=== PATIENT | male | born 1935 | race Caucasian/White ===

== ENCOUNTER 2019-01-30 05:49 | Inpatient (IN) ==
[2019-01-19 12:55] LABS: Basophils % 0.3 % (0.0-0.8); Eosinophils # 0.2 10*3/uL (0.0-0.87); Eosinophils % 1.3 % (0.00-10.9); Hematocrit 37.6 VOL% (42.0-52.0); Hemoglobin 12.1 GM/DL (14.0-18.0); Immature Granulocytes % 1.3 %; Immature Granulocytes Absolute 0.15 #; Lymphocytes # 0.9 10*3/uL (1.4-4.0); Lymphocytes % 8.1 % (21.2-54.2); Mean Corpuscular HGB Conc 32.2 GM/DL (32-36); Mean Corpuscular Volume 95.7 FL (87-102); Mean Platelet Volume 12.3 FL (9.6-12.0); Monocytes % 4.7 % (1.7-12.7); Neutrophils % 84.3 % (38.7-73.9); Platelet Count 195 T/CUMM (130-400); Red Blood Count 3.93 MC/CUMM (3.8-5.5); White Blood Count 11.4 T/CUMM (4-12)
[2019-01-19 13:04] LABS: INR 1.6; PT Patient Result 16.8 SECS (9.6-12.2)
[2019-01-19 13:14] LABS: Albumin 3.2 G/DL (3.4-5.0); Bilirubin,Total 0.7 MG/DL (0.2-1.0); Calcium 8.1 MG/DL (8.5-10.1); Osmolality,Calculated 283.4 MOS/KG (273-304); Total Protein 6.9 G/DL (6.4-8.3)
[2019-01-30] MEDS ORDERED: ceFAZolin 1,000 MG in SYRINGE 1 EACH IV ONE (06:00)
[2019-01-30 07:09] LABS: PT Patient Result 11.3 SECS (9.6-12.2)
[2019-01-30] MEDS ORDERED: PHENYLEPHRINE DRIP 20 MG/250 ML PREMIX IV ONE (07:15)
[2019-01-30] MEDS ORDERED: ROPIVACAINE 0.5% 30 ML VIAL ONE (07:15)
[2019-01-30] MEDS ORDERED: HEPARIN/NACL 0.9% 2 UNITS/ML 500 ML IV ONE ×2 (07:15→11:16)
[2019-01-30] MEDS ORDERED: LIDOCAINE 2% 5 ML VIAL ONE ×2 (07:15→11:13)
[2019-01-30] MEDS ORDERED: PHENYLEPHRINE 10 MG/1 ML VIAL IV ONE ×2 (07:16→11:16)
[2019-01-30] MEDS ORDERED: NITROGLYCERIN DRIP 50 MG/250 ML BOTTLE IV ONE ×2 (07:16→11:16)
[2019-01-30] MEDS ORDERED: MIDAZOLAM 2 MG/2 ML VIAL ONE (07:16)
[2019-01-30] MEDS ORDERED: EPINEPHrine 1 MG/ML VIAL ONE (07:16)
[2019-01-30] MEDS ORDERED: fentaNYL 100 MCG/2 ML VIAL ONE (07:16)
[2019-01-30] MEDS ORDERED: ceFAZolin 1,000 MG VIAL ONE (07:35)
[2019-01-30] MEDS ORDERED: DEXAMETHASONE 4 MG/1 ML VIAL ONE (07:54)
[2019-01-30] MEDS ORDERED: LIDOCAINE 1% 20 ML VIAL ONE (08:23)
[2019-01-30] MEDS ORDERED: HEPARIN 5,000 UNIT/1 ML VIAL ONE (08:23)
[2019-01-30] MEDS ORDERED: LACTATED RINGERS 1,000 ML IV SCH ×2 (08:30)
[2019-01-30] MEDS ORDERED: SCOPOLAMINE 1.5 MG PATCH TRANSDERM ONE (08:37)
[2019-01-30] MEDS ORDERED: GLUCAGON 1 MG VIAL IM PRN (10:44)
[2019-01-30] MEDS ORDERED: DEXTROSE 50% 25 GM/50 ML VIAL IV PRN (10:44)
[2019-01-30] MEDS ORDERED: oxyCODONE/ACETAMINOPHEN 5-325 MG TABLET PO PRN ×2 (10:44)
[2019-01-30] MEDS ORDERED: HYDROmorphone 2 MG/1 ML VIAL IV PRN ×2 (10:44)
[2019-01-30] MEDS ORDERED: PROMETHAZINE 25 MG/1 ML VIAL IM PRN (10:44)
[2019-01-30] MEDS ORDERED: NALOXONE 0.4 MG/ML VIAL IV PRN (10:44)
[2019-01-30] MEDS ORDERED: ONDANSETRON 4 MG/2 ML VIAL IV PRN (10:44)
[2019-01-30] MEDS ORDERED: NITROPRUSSIDE 100 MG in DEXTROSE 5% 250 ML IV SCH (11:00)
[2019-01-30] MEDS ORDERED: HEPARIN 10,000 UNIT/10 ML VIAL ONE (11:14)
[2019-01-30] MEDS ORDERED: SEVOFLURANE 1 UNIT/15 MINUTE INH ONE (11:14)
[2019-01-30] MEDS ORDERED: ETOMIDATE 40 MG/20 ML VIAL IV ONE (11:14)
[2019-01-30] MEDS ORDERED: ONDANSETRON 4 MG/2 ML VIAL ONE (11:14)
[2019-01-30] MEDS ORDERED: GLYCOPYRROLATE 0.4 MG/2 ML VIAL ONE (11:14)
[2019-01-30] MEDS ORDERED: ePHEDrine 50 MG/ML AMP ONE (11:14)
[2019-01-30] MEDS ORDERED: PROTAMINE SULFATE 50 MG/5 ML VIAL IV ONE (11:15)
[2019-01-30] MEDS ORDERED: SUCCINYLCHOLINE 200 MG/10 ML VIAL ONE (11:15)
[2019-01-30] MEDS ORDERED: ROCURONIUM 100 MG/10 ML VIAL IV ONE (11:15)
[2019-01-30] MEDS ORDERED: SODIUM CHLORIDE 0.9% 250 ML IV ONE (11:16)
[2019-01-30] MEDS: PHENYLEPHRINE DRIP 40 MG/250 ML PREMIX IV SCH (12:20)
[2019-01-30] MEDS: LACTATED RINGERS 1,000 ML IV SCH ×2 (12:25→22:31)
[2019-01-30] MEDS: FUROSEMIDE 40 MG TABLET PO SCH (15:57)
[2019-01-30] MEDS: SPIRONOLACTONE 25 MG TABLET PO SCH (20:30)
[2019-01-30] MEDS ORDERED: ROSUVASTATIN 40 MG PO SCH (21:00)
[2019-01-30] MEDS ORDERED: SACUBITRIL/VALSARTAN 49-51 MG TABLET PO SCH (21:00)
[2019-01-30] MEDS ORDERED: carvediloL 12.5 MG TABLET PO SCH (21:00)
[2019-01-31] MEDS: PHENYLEPHRINE DRIP 40 MG/250 ML PREMIX IV SCH ×3 (05:17→22:01)
[2019-01-31 08:55] LABS: INR 1.1; PT Patient Result 11.4 SECS (9.6-12.2)
[2019-01-31] MEDS: SPIRONOLACTONE 25 MG TABLET PO SCH (09:02)
[2019-01-31] MEDS: CETIRIZINE 10 MG TABLET PO SCH (09:03)
[2019-01-31] MEDS: POTASSIUM CHLORIDE 20 MEQ TABLET PO SCH (09:03)
[2019-01-31] MEDS: FUROSEMIDE 40 MG TABLET PO SCH (09:04)
[2019-01-31] MEDS: TAMSULOSIN 0.4 MG CAPSULE PO SCH (09:04)
[2019-01-31] MEDS: ENOXAPARIN 40 MG/0.4 ML SYRINGE SUBCUT SCH (09:05)
[2019-01-31] MEDS: LACTATED RINGERS 1,000 ML IV SCH (09:24)
[2019-01-31] MEDS ORDERED: INFLUENZA VIRUS VACCINE 0.5 ML SYRINGE IM ONE (11:47)
[2019-01-31 13:26] LABS: Basophils % 0.2 % (0.0-0.8); Eosinophils % 0.3 % (0.00-10.9); Hematocrit 33.7 VOL% (42.0-52.0); Hemoglobin 10.8 GM/DL (14.0-18.0); Immature Granulocytes % 0.6 %; Immature Granulocytes Absolute 0.08 #; Lymphocytes # 1.4 10*3/uL (1.4-4.0); Lymphocytes % 10.7 % (21.2-54.2); Mean Corpuscular Volume 97.1 FL (87-102); Mean Platelet Volume 12.7 FL (9.6-12.0); Monocytes % 10.4 % (1.7-12.7); Neutrophils % 77.8 % (38.7-73.9); Platelet Count 135 T/CUMM (130-400); Red Blood Count 3.47 MC/CUMM (3.8-5.5); Red Cell Distribution Width 15.4 % (9.3-17.3); White Blood Count 12.9 T/CUMM (4-12)
[2019-01-31 13:45] LABS: Calcium 8.6 MG/DL (8.5-10.1); Osmolality,Calculated 285.1 MOS/KG (273-304)
[2019-01-31] MEDS: WARFARIN 4 MG TABLET PO SCH (18:06)
[2019-02-01 08:07] LABS: Basophils % 0.3 % (0.0-0.8); Eosinophils # 0.1 10*3/uL (0.0-0.87); Eosinophils % 0.7 % (0.00-10.9); Hematocrit 34.8 VOL% (42.0-52.0); Hemoglobin 11.1 GM/DL (14.0-18.0); Immature Granulocytes % 0.6 %; Immature Granulocytes Absolute 0.09 #; Lymphocytes # 1.1 10*3/uL (1.4-4.0); Lymphocytes % 7.4 % (21.2-54.2); Mean Corpuscular HGB Conc 31.9 GM/DL (32-36); Mean Corpuscular Volume 97.5 FL (87-102); Monocytes % 9.6 % (1.7-12.7); Neutrophils % 81.4 % (38.7-73.9); Platelet Count 141 T/CUMM (130-400); Red Blood Count 3.57 MC/CUMM (3.8-5.5); Red Cell Distribution Width 15.6 % (9.3-17.3); White Blood Count 14.7 T/CUMM (4-12)
[2019-02-01 08:14] LABS: PT Patient Result 11.1 SECS (9.6-12.2)
[2019-02-01 08:27] LABS: Calcium 8.2 MG/DL (8.5-10.1); Osmolality,Calculated 285.4 MOS/KG (273-304)
[2019-02-01] MEDS: TAMSULOSIN 0.4 MG CAPSULE PO SCH (10:46)
[2019-02-01] MEDS: ENOXAPARIN 40 MG/0.4 ML SYRINGE SUBCUT SCH (10:46)
[2019-02-01] MEDS: POTASSIUM CHLORIDE 20 MEQ TABLET PO SCH (10:46)
[2019-02-01] MEDS: CETIRIZINE 10 MG TABLET PO SCH (10:47)
[2019-02-01] MEDS: PHENYLEPHRINE DRIP 40 MG/250 ML PREMIX IV SCH (12:10)
[2019-02-01] MEDS ORDERED: SODIUM CHLORIDE 0.9% 1,000 ML IV SCH (13:00)
[2019-02-01] MEDS ORDERED: WARFARIN 7.5 MG TABLET PO ONE (18:00)
[2019-02-01] MEDS: WARFARIN 4 MG TABLET PO SCH (18:07)
[2019-02-01] MEDS: ROSUVASTATIN 20 MG TABLET PO SCH (21:17)
[2019-02-02 05:34] LABS: INR 1.1; PT Patient Result 11.7 SECS (9.6-12.2)
[2019-02-02 05:49] LABS: Calcium 8.4 MG/DL (8.5-10.1); Osmolality,Calculated 289.1 MOS/KG (273-304)
[2019-02-02] MEDS ORDERED: WARFARIN 10 MG TABLET PO ONE (07:39)
[2019-02-02] MEDS ORDERED: MAGNESIUM HYDROXIDE SUSP 30 ML UDCUP PO PRN (08:03)
[2019-02-02] MEDS ORDERED: MAGNESIUM HYDROXIDE SUSP 30 ML UDCUP PO ONE (08:03)
[2019-02-02] MEDS: TAMSULOSIN 0.4 MG CAPSULE PO SCH (08:34)
[2019-02-02] MEDS: POTASSIUM CHLORIDE 20 MEQ TABLET PO SCH (08:35)
[2019-02-02] MEDS: CETIRIZINE 10 MG TABLET PO SCH (08:35)
[2019-02-02] MEDS: ENOXAPARIN 40 MG/0.4 ML SYRINGE SUBCUT SCH (08:35)
[2019-02-02] MEDS: SODIUM CHLORIDE 0.45% 1,000 ML IV SCH ×2 (08:48→22:06)
[2019-02-02] MEDS: ROSUVASTATIN 20 MG TABLET PO SCH (20:12)
[2019-02-03 04:56] LABS: INR 1.4; PT Patient Result 14.9 SECS (9.6-12.2)
[2019-02-03 05:11] LABS: Calcium 8.6 MG/DL (8.5-10.1)
[2019-02-03] MEDS ORDERED: ENOXAPARIN 120 MG/0.8 ML SYRINGE SUBCUT ONE (08:53)
[2019-02-03] MEDS: ENOXAPARIN 40 MG/0.4 ML SYRINGE SUBCUT SCH (09:18)
[2019-02-03] MEDS: CETIRIZINE 10 MG TABLET PO SCH (09:23)
[2019-02-03] MEDS: TAMSULOSIN 0.4 MG CAPSULE PO SCH (09:23)
[2019-02-03] MEDS: POTASSIUM CHLORIDE 20 MEQ TABLET PO SCH (09:23)
[2019-02-03 12:26] VITALS: BP 113/59
[2019-02-03] MEDS ORDERED: WARFARIN 5 MG TABLET PO SCH (18:00)
== END 2019-02-03 12:56 | disposition home or self-care (01) | DRG 38 ==
LOC: N.SDSINP 05:49 → N.CC 11:28 → N.TELES 02-01 17:53
PROVIDERS: ADMIT Surgery; ATTEND Surgery

== ENCOUNTER 2022-04-02 21:00 | Inpatient (IN) ==
[2022-04-02] MEDS ORDERED: NALOXONE 0.4 MG/ML VIAL ONE (21:12)
[2022-04-02] MEDS ORDERED: DILTIAZEM 25 MG/5 ML VIAL IV ONE (21:17)
[2022-04-02] MEDS ORDERED: AMIODARONE 150 MG/3 ML VIAL ONE (21:17)
[2022-04-02] MEDS ORDERED: MAGNESIUM SULF RIDER 2 GM/50 ML PREMIX IV ONE (21:19)
[2022-04-02] MEDS ORDERED: AMIODARONE 450 MG/9 ML VIAL IV ONE (21:25)
[2022-04-02] MEDS: AMIODARONE INJ 450 MG in DEXTROSE 5% 241 ML IV SCH (21:30)
[2022-04-02] MEDS: NOREPINEPHRINE DRIP 8 MG/250 ML PREMIX IV PRN (21:42)
[2022-04-02 22:04] LABS: Arterial Base Excess iSTAT 5 MMOL/L (-2.5-2.5); Arterial Bicarbonate iSTAT 31.3 MMOL/L (20-26); Arterial O2 Saturation iSTAT 100 % (95-100); Arterial PCO2 iSTAT 51 MM HG (35-48); Arterial PO2 iSTAT 590 MM HG (80-95); Arterial Total CO2 iSTAT 33 MMO/L (23-27); Arterial pH iSTAT 7.397 (7.35-7.45)
[2022-04-02 22:18] LABS: Basophils # 0.1 10*3/uL (0.0-0.2); Basophils % 0.3 % (0.0-0.8); Eosinophils # 0.2 10*3/uL (0.0-0.87); Eosinophils % 0.9 % (0.00-10.9); Hematocrit 44.4 VOL% (42.0-52.0); Hemoglobin 14.3 GM/DL (14.0-18.0); Immature Granulocytes % 1.1 %; Immature Granulocytes Absolute 0.19 #; Lymphocytes # 2.8 10*3/uL (1.4-4.0); Mean Corpuscular HGB Conc 32.2 GM/DL (32-36); Mean Corpuscular Volume 96.9 FL (87-102); Mean Platelet Volume 12.7 FL (9.6-12.0); Monocytes # 0.9 10*3/uL (0.11-0.8); Monocytes % 5.6 % (1.7-12.7); NRBC # 0.02 10*3/uL; Neutrophils % 75.1 % (38.7-73.9); Platelet Count 254 T/CUMM (130-400); Red Blood Count 4.58 MC/CUMM (3.8-5.5); Red Cell Distribution Width 15.8 % (9.3-17.3); White Blood Count 16.6 T/CUMM (4-12)
[2022-04-02 22:22] LABS: PT Patient Result 20.8 SECS (10.1-12.1)
[2022-04-02 22:29] LABS: Bilirubin,Urine Negative (Negative); Blood, Urine Moderate mg/dL (Negative); Glucose,Urine (UA) Negative (Negative); Ketones,Urine Negative (Negative); Nitrite,Urine Negative (Negative); Protein,Urine 100 mg/dL (Negative); Urine Appearance Clear (Clear); Urine Color Yellow (Yellow); Urine Specific Gravity 1.025 (1.001-1.035); Urine Urobilinogen 0.2 eU/dL (<2.0); Urine pH 5.5 (4.5-8.0)
[2022-04-02 22:34] LABS: Amorphous Crystals,Urine Occasional /HPF (Few); Bacteria,Urine Occasional /HPF (Few); Hyaline Casts,Urine 114 /LPF (0-3); Mucus,Urine Occasional /LPF (Occasional); RBC,Urine 1 /HPF (0-4); Squamous Epithelial Cell,Urine Occasional /HPF (0-10)
[2022-04-02 23:04] LABS: Albumin 3.6 G/DL (3.4-5.0); Bilirubin,Total 0.7 MG/DL (0.20-1.00); Osmolality,Calculated 282.1 MOS/KG (273-304); Potassium 3.9 MMOL/L (3.5-5.1); Total Protein 6.5 G/DL (6.4-8.2)
[2022-04-02] MEDS ORDERED: ETOMIDATE 20 MG/10 ML VIAL IV STA (23:23)
[2022-04-02] MEDS ORDERED: VECURONIUM 10 MG VIAL IV STA (23:24)
[2022-04-02] MEDS ORDERED: AMIODARONE INJ 150 MG in DEXTROSE 5% 100 ML IV ONE (23:25)
[2022-04-02] MEDS ORDERED: MAGNESIUM SULF RIDER 2 GM/50 ML PREMIX IV STA (23:27)
[2022-04-02] MEDS ORDERED: ALBUTEROL 2.5 MG/3 ML NEB RESP TX PRN (23:43)
[2022-04-03] MEDS ORDERED: MAGNESIUM SULFATE 1 GM/2 ML VIAL IV ONE ×2 (00:30→01:30)
[2022-04-03] MEDS ORDERED: INFLUENZA VIRUS VACCINE 0.5 ML SYRINGE IM ONE (01:31)
[2022-04-03] MEDS: SODIUM CHLORIDE 0.9% 1,000 ML IV SCH ×2 (01:55→12:35)
[2022-04-03] MEDS: HEPARIN DRIP 25,000 UNITS/500 ML PREMIX IV SCH ×2 (02:20→23:16)
[2022-04-03 04:24] LABS: Arterial Base Excess iSTAT 4 MMOL/L (-2.5-2.5); Arterial Bicarbonate iSTAT 29.9 MMOL/L (20-26); Arterial O2 Saturation iSTAT 99 % (95-100); Arterial PCO2 iSTAT 50 MM HG (35-48); Arterial PO2 iSTAT 155 MM HG (80-95); Arterial Total CO2 iSTAT 31 MMO/L (23-27); Arterial pH iSTAT 7.384 (7.35-7.45)
[2022-04-03 05:05] LABS: Albumin 3.4 G/DL (3.4-5.0); Bilirubin,Total 0.9 MG/DL (0.20-1.00); Calcium 8.9 MG/DL (8.5-10.1); Osmolality,Calculated 284.7 MOS/KG (273-304); Potassium 3.5 MMOL/L (3.5-5.1); Total Protein 6.7 G/DL (6.4-8.2)
[2022-04-03 06:22] LABS: Basophils % 0.1 % (0.0-0.8); Eosinophils % 0.1 % (0.00-10.9); Hematocrit 44.2 VOL% (42.0-52.0); Hemoglobin 14.1 GM/DL (14.0-18.0); Immature Granulocytes % 0.8 %; Immature Granulocytes Absolute 0.16 #; Lymphocytes # 1.1 10*3/uL (1.4-4.0); Lymphocytes % 5.5 % (21.2-54.2); Mean Corpuscular HGB Conc 31.9 GM/DL (32-36); Mean Corpuscular Volume 97.6 FL (87-102); Mean Platelet Volume 13.1 FL (9.6-12.0); Monocytes # 1.2 10*3/uL (0.11-0.8); Monocytes % 5.7 % (1.7-12.7); Neutrophils % 87.8 % (38.7-73.9); Platelet Count 278 T/CUMM (130-400); Red Blood Count 4.53 MC/CUMM (3.8-5.5); Red Cell Distribution Width 15.8 % (9.3-17.3); White Blood Count 20.4 T/CUMM (4-12)
[2022-04-03 06:51] LABS: Lymphocytes 2 % (20-55); Macrocytosis Slight; Total Cells Counted 100
[2022-04-03 06:53] LABS: Platelet Estimate Normal
[2022-04-03 06:56] LABS: INR 1.9; PT Patient Result 20.4 SECS (10.1-12.1)
[2022-04-03] MEDS ORDERED: POTASSIUM CHLORIDE 20 MEQ TABLET PO ONE (08:08)
[2022-04-03] MEDS: POTASSIUM CHLORIDE 20 MEQ TABLET PO SCH (08:09)
[2022-04-03] MEDS: OMEGA 3 ACID ETHYL ESTERS 1 GM CAPSULE PO SCH (08:09)
[2022-04-03] MEDS: EZETIMIBE 10 MG TABLET PO SCH (08:09)
[2022-04-03] MEDS: PANTOPRAZOLE 40 MG VIAL IV SCH (08:10)
[2022-04-03] MEDS: LINACLOTIDE 145 MCG CAPSULE PO SCH (08:10)
[2022-04-03] MEDS: NOREPINEPHRINE DRIP 8 MG/250 ML PREMIX IV PRN ×2 (09:16→21:15)
[2022-04-03 14:27] LABS: PT Patient Result 20.8 SECS (10.1-12.1); Partial Thromboplastin Time 63.2 SECS (23.7-32.9)
[2022-04-03] MEDS: AMIODARONE INJ 450 MG in DEXTROSE 5% 241 ML IV SCH ×2 (15:02→23:16)
[2022-04-03] MEDS ORDERED: MIDAZOLAM 2 MG/2 ML VIAL ONE (16:53)
[2022-04-03] MEDS ORDERED: LIDOCAINE 100 MG/5 ML SYRINGE ONE (16:57)
[2022-04-03] MEDS ORDERED: LIDOCAINE 100 MG/5 ML SYRINGE IV ONE (16:59)
[2022-04-03] MEDS ORDERED: MIDAZOLAM 2 MG/2 ML VIAL IV ONE (16:59)
[2022-04-03] MEDS ORDERED: LACTATED RINGERS 500 ML IV ONE (17:01)
[2022-04-03 17:45] LABS: Calcium 8.6 MG/DL (8.5-10.1); Osmolality,Calculated 279.8 MOS/KG (273-304); Potassium 3.5 MMOL/L (3.5-5.1)
[2022-04-03] MEDS: LIDOCAINE DRIP 2,000 MG/250 ML PREMIX IV SCH (17:59)
[2022-04-03] MEDS: ROSUVASTATIN 20 MG TABLET PO SCH (20:52)
[2022-04-03] MEDS ORDERED: EPINEPHrine 1 MG/10 ML SYRINGE IV ONE (21:18)
[2022-04-03] MEDS ORDERED: ATROPINE 1 MG/10 ML SYRINGE IV ONE (21:19)
[2022-04-04] MEDS: HEPARIN DRIP 25,000 UNITS/500 ML PREMIX IV SCH ×2 (01:43→21:55)
[2022-04-04] MEDS: SODIUM CHLORIDE 0.9% 1,000 ML IV SCH ×3 (01:43→19:40)
[2022-04-04 04:30] LABS: Basophils % 0.1 % (0.0-0.8); Eosinophils % 0.1 % (0.00-10.9); Hematocrit 41.8 VOL% (42.0-52.0); Hemoglobin 13.3 GM/DL (14.0-18.0); Immature Granulocytes % 0.4 %; Immature Granulocytes Absolute 0.06 #; Lymphocytes # 1.2 10*3/uL (1.4-4.0); Lymphocytes % 6.8 % (21.2-54.2); Mean Corpuscular HGB Conc 31.8 GM/DL (32-36); Mean Corpuscular Volume 97.7 FL (87-102); Mean Platelet Volume 12.6 FL (9.6-12.0); Monocytes # 1.4 10*3/uL (0.11-0.8); Monocytes % 8.2 % (1.7-12.7); Neutrophils % 84.4 % (38.7-73.9); Platelet Count 211 T/CUMM (130-400); Red Blood Count 4.28 MC/CUMM (3.8-5.5); Red Cell Distribution Width 16.2 % (9.3-17.3); White Blood Count 17.1 T/CUMM (4-12)
[2022-04-04 04:43] LABS: Arterial Base Excess iSTAT 2 MMOL/L (-2.5-2.5); Arterial O2 Saturation iSTAT 98 % (95-100); Arterial PCO2 iSTAT 48 MM HG (35-48); Arterial PO2 iSTAT 111 MM HG (80-95); Arterial Total CO2 iSTAT 29 MMO/L (23-27); Arterial pH iSTAT 7.378 (7.35-7.45)
[2022-04-04 04:45] LABS: Albumin 2.9 G/DL (3.4-5.0); Bilirubin,Total 0.8 MG/DL (0.20-1.00); Calcium 8.1 MG/DL (8.5-10.1); Osmolality,Calculated 273.1 MOS/KG (273-304); Potassium 3.4 MMOL/L (3.5-5.1); Total Protein 6.3 G/DL (6.4-8.2)
[2022-04-04 04:56] LABS: INR 2.6; PT Patient Result 26.7 SECS (10.1-12.1); Partial Thromboplastin Time 96.8 SECS (23.7-32.9)
[2022-04-04 05:31] LABS: Anisocytosis Slight; Band Neutrophils 2 % (0-10); Lymphocytes 9 % (20-55); Platelet Estimate Normal; Total Cells Counted 100
[2022-04-04 05:32] LABS: Macrocytosis Slight; Ovalocytes Few
[2022-04-04] MEDS: AMIODARONE INJ 450 MG in DEXTROSE 5% 241 ML IV SCH ×3 (06:37→20:28)
[2022-04-04] MEDS ORDERED: POTASSIUM CHLORIDE 20 MEQ TABLET PO ONE (07:23)
[2022-04-04] MEDS: EZETIMIBE 10 MG TABLET PO SCH (08:26)
[2022-04-04] MEDS: PANTOPRAZOLE 40 MG VIAL IV SCH (08:26)
[2022-04-04] MEDS: POTASSIUM CHLORIDE 20 MEQ TABLET PO SCH (08:26)
[2022-04-04] MEDS: OMEGA 3 ACID ETHYL ESTERS 1 GM CAPSULE PO SCH (08:26)
[2022-04-04] MEDS: LINACLOTIDE 145 MCG CAPSULE PO SCH (08:27)
[2022-04-04] MEDS ORDERED: ETOMIDATE 20 MG/10 ML VIAL IV ONE ×2 (09:31→09:37)
[2022-04-04] MEDS ORDERED: SUCCINYLCHOLINE 200 MG/10 ML VIAL ONE (09:32)
[2022-04-04] MEDS ORDERED: SUCCINYLCHOLINE 200 MG/10 ML VIAL IV ONE (09:37)
[2022-04-04] MEDS ORDERED: ROCURONIUM 100 MG/10 ML VIAL IV ONE (09:44)
[2022-04-04] MEDS ORDERED: MIDAZOLAM 2 MG/2 ML VIAL IV ONE ×5 (09:45→13:20)
[2022-04-04] MEDS ORDERED: MIDAZOLAM 10 MG/2 ML VIAL ONE ×2 (09:45→13:14)
[2022-04-04] MEDS ORDERED: LIDOCAINE 1% 20 ML VIAL RESP TX ONE (09:46)
[2022-04-04 10:34] VITALS: BP 94/61
[2022-04-04] MEDS: LIDOCAINE DRIP 2,000 MG/250 ML PREMIX IV SCH (10:40)
[2022-04-04] MEDS: PIPERACILLIN/TAZOBACTAM 3,375 MG in SODIUM CHLORIDE 0.9% 100 ML IV SCH ×2 (12:12→20:29)
[2022-04-04 13:46] LABS: Arterial Base Excess iSTAT -1 MMOL/L (-2.5-2.5); Arterial Bicarbonate iSTAT 25.8 MMOL/L (20-26); Arterial O2 Saturation iSTAT 98 % (95-100); Arterial PCO2 iSTAT 50 MM HG (35-48); Arterial PO2 iSTAT 107 MM HG (80-95); Arterial Total CO2 iSTAT 27 MMO/L (23-27); Arterial pH iSTAT 7.319 (7.35-7.45)
[2022-04-04] MEDS: NOREPINEPHRINE DRIP 8 MG/250 ML PREMIX IV PRN ×2 (13:55→21:56)
[2022-04-04] MEDS: ROSUVASTATIN 20 MG TABLET PO SCH (20:29)
[2022-04-05] MEDS: LIDOCAINE DRIP 2,000 MG/250 ML PREMIX IV SCH ×2 (03:06→19:49)
[2022-04-05] MEDS: HEPARIN DRIP 25,000 UNITS/500 ML PREMIX IV SCH (03:06)
[2022-04-05] MEDS: SODIUM CHLORIDE 0.9% 1,000 ML IV SCH ×2 (03:45→17:56)
[2022-04-05] MEDS: PIPERACILLIN/TAZOBACTAM 3,375 MG in SODIUM CHLORIDE 0.9% 100 ML IV SCH (03:46)
[2022-04-05] MEDS: NOREPINEPHRINE DRIP 8 MG/250 ML PREMIX IV PRN ×4 (03:46→19:23)
[2022-04-05 04:21] LABS: Arterial Base Excess iSTAT -1 MMOL/L (-2.5-2.5); Arterial Bicarbonate iSTAT 25.2 MMOL/L (20-26); Arterial O2 Saturation iSTAT 99 % (95-100); Arterial PCO2 iSTAT 47 MM HG (35-48); Arterial PO2 iSTAT 136 MM HG (80-95); Arterial Total CO2 iSTAT 27 MMO/L (23-27); Arterial pH iSTAT 7.334 (7.35-7.45)
[2022-04-05 04:35] LABS: Basophils % 0.2 % (0.0-0.8); Hemoglobin 13.6 GM/DL (14.0-18.0); Immature Granulocytes % 0.9 %; Immature Granulocytes Absolute 0.21 #; Lymphocytes # 1.2 10*3/uL (1.4-4.0); Lymphocytes % 4.8 % (21.2-54.2); Mean Corpuscular HGB Conc 30.9 GM/DL (32-36); Monocytes # 1.5 10*3/uL (0.11-0.8); Monocytes % 6.2 % (1.7-12.7); Neutrophils % 87.9 % (38.7-73.9); Platelet Count 223 T/CUMM (130-400); Red Cell Distribution Width 16.3 % (9.3-17.3); White Blood Count 24.1 T/CUMM (4-12)
[2022-04-05 04:41] LABS: Albumin 2.5 G/DL (3.4-5.0); Bilirubin,Total 1.2 MG/DL (0.20-1.00); Osmolality,Calculated 271.5 MOS/KG (273-304); Potassium 4.5 MMOL/L (3.5-5.1)
[2022-04-05 04:44] LABS: INR 2.1; PT Patient Result 21.8 SECS (10.1-12.1)
[2022-04-05 05:47] LABS: Platelet Estimate Normal
[2022-04-05] MEDS: OMEGA 3 ACID ETHYL ESTERS 1 GM CAPSULE PO SCH (08:03)
[2022-04-05] MEDS: PANTOPRAZOLE 40 MG VIAL IV SCH (08:03)
[2022-04-05] MEDS: EZETIMIBE 10 MG TABLET PO SCH (08:03)
[2022-04-05] MEDS: LINACLOTIDE 145 MCG CAPSULE PO SCH (08:03)
[2022-04-05] MEDS: POTASSIUM CHLORIDE 20 MEQ TABLET PO SCH (08:03)
[2022-04-05] MEDS: methylPREDNISolone SOD SUC 40 MG/1 ML VIAL IV SCH ×2 (08:50→20:22)
[2022-04-05] MEDS: MEROPENEM 500 MG in SODIUM CHLORIDE 0.9% 100 ML IV SCH ×3 (08:52→20:22)
[2022-04-05] MEDS: AMIODARONE INJ 450 MG in DEXTROSE 5% 241 ML IV SCH (11:14)
[2022-04-05] MEDS: ALBUTEROL/IPRATROPIUM 3 ML NEB RESP TX SCH ×2 (13:00→19:20)
[2022-04-05] MEDS: ROSUVASTATIN 20 MG TABLET PO SCH (20:21)
[2022-04-06] MEDS: HEPARIN DRIP 25,000 UNITS/500 ML PREMIX IV SCH ×2 (00:20→01:09)
[2022-04-06] MEDS: NOREPINEPHRINE DRIP 8 MG/250 ML PREMIX IV PRN ×3 (00:46→14:27)
[2022-04-06] MEDS: ALBUTEROL/IPRATROPIUM 3 ML NEB RESP TX SCH ×4 (01:06→19:12)
[2022-04-06] MEDS: AMIODARONE INJ 450 MG in DEXTROSE 5% 241 ML IV SCH ×2 (02:18→20:11)
[2022-04-06] MEDS: MEROPENEM 500 MG in SODIUM CHLORIDE 0.9% 100 ML IV SCH ×4 (02:19→21:52)
[2022-04-06 03:03] LABS: Arterial Base Excess iSTAT -2 MMOL/L (-2.5-2.5); Arterial Bicarbonate iSTAT 23.4 MMOL/L (20-26); Arterial O2 Saturation iSTAT 97 % (95-100); Arterial PCO2 iSTAT 41 MM HG (35-48); Arterial PO2 iSTAT 92 MM HG (80-95); Arterial Total CO2 iSTAT 25 MMO/L (23-27); Arterial pH iSTAT 7.365 (7.35-7.45)
[2022-04-06 04:48] LABS: Basophils % 0.1 % (0.0-0.8); Hematocrit 41.9 VOL% (42.0-52.0); Hemoglobin 13.2 GM/DL (14.0-18.0); Immature Granulocytes % 0.9 %; Immature Granulocytes Absolute 0.18 #; Lymphocytes # 0.4 10*3/uL (1.4-4.0); Lymphocytes % 1.9 % (21.2-54.2); Mean Corpuscular HGB Conc 31.5 GM/DL (32-36); Mean Corpuscular Volume 98.1 FL (87-102); Mean Platelet Volume 12.4 FL (9.6-12.0); Monocytes % 5.1 % (1.7-12.7); Platelet Count 239 T/CUMM (130-400); Red Blood Count 4.27 MC/CUMM (3.8-5.5); Red Cell Distribution Width 16.4 % (9.3-17.3); White Blood Count 19.2 T/CUMM (4-12)
[2022-04-06 04:53] LABS: INR 1.5; PT Patient Result 15.9 SECS (10.1-12.1)
[2022-04-06 05:01] LABS: Albumin 2.1 G/DL (3.4-5.0); Bilirubin,Total 0.8 MG/DL (0.20-1.00); Calcium 8.1 MG/DL (8.5-10.1); Osmolality,Calculated 278.2 MOS/KG (273-304); Potassium 4.6 MMOL/L (3.5-5.1); Total Protein 5.9 G/DL (6.4-8.2)
[2022-04-06 05:06] LABS: Lymphocytes 3 % (20-55); Platelet Estimate Adequate; Total Cells Counted 100
[2022-04-06] MEDS: LIDOCAINE DRIP 2,000 MG/250 ML PREMIX IV SCH (05:59)
[2022-04-06] MEDS: SODIUM CHLORIDE 0.9% 1,000 ML IV SCH ×2 (08:00→21:08)
[2022-04-06] MEDS ORDERED: FUROSEMIDE 40 MG/4 ML VIAL IV ONE (08:26)
[2022-04-06] MEDS ORDERED: AMIODARONE 200 MG TABLET NG SCH (09:00)
[2022-04-06] MEDS: methylPREDNISolone SOD SUC 40 MG/1 ML VIAL IV SCH ×2 (09:30→21:51)
[2022-04-06] MEDS: MEXILETINE 150 MG CAPSULE PO SCH ×3 (09:30→21:41)
[2022-04-06] MEDS: EZETIMIBE 10 MG TABLET PO SCH (09:30)
[2022-04-06] MEDS ORDERED: ASPIRIN EC 81 MG TABLET PO SCH (09:30)
[2022-04-06] MEDS: POTASSIUM BICARB EFFERVESCENT 20 MEQ TAB.EFF PO SCH (09:30)
[2022-04-06] MEDS: PANTOPRAZOLE 40 MG VIAL IV SCH (09:30)
[2022-04-06] MEDS: LINACLOTIDE 145 MCG CAPSULE PO SCH (09:30)
[2022-04-06] MEDS: ASPIRIN CHEW 81 MG TABLET PO SCH (14:26)
[2022-04-06] MEDS: INSULIN REGULAR 100 UNIT/ML SUBCUT SCH (18:24)
[2022-04-06] MEDS ORDERED: ADENOSINE 6 MG/2 ML VIAL ONE (20:06)
[2022-04-06] MEDS ORDERED: MIDAZOLAM 10 MG/2 ML VIAL ONE (20:13)
[2022-04-06] MEDS ORDERED: SODIUM CHLORIDE 0.9% 500 ML IV ONE (20:17)
[2022-04-06] MEDS ORDERED: ADENOSINE 6 MG/2 ML VIAL IV ONE ×2 (20:17)
[2022-04-06] MEDS ORDERED: MIDAZOLAM 10 MG/2 ML VIAL IV ONE (20:17)
[2022-04-06] MEDS ORDERED: AMIODARONE INJ 300 MG in DEXTROSE 5% 100 ML IV ONE (20:17)
[2022-04-06] MEDS ORDERED: MIDAZOLAM DRIP 100 MG/100 ML PREMIX IV ONE (20:22)
[2022-04-06] MEDS: MIDAZOLAM DRIP 100 MG/100 ML PREMIX IV PRN (20:27)
[2022-04-06 20:36] LABS: Basophils % 0.1 % (0.0-0.8); Hematocrit 40.9 VOL% (42.0-52.0); Hemoglobin 12.9 GM/DL (14.0-18.0); Immature Granulocytes % 0.8 %; Immature Granulocytes Absolute 0.16 #; Lymphocytes # 0.5 10*3/uL (1.4-4.0); Lymphocytes % 2.6 % (21.2-54.2); Mean Corpuscular HGB Conc 31.5 GM/DL (32-36); Mean Corpuscular Volume 98.3 FL (87-102); Mean Platelet Volume 12.6 FL (9.6-12.0); Monocytes # 1.6 10*3/uL (0.11-0.8); Monocytes % 8.2 % (1.7-12.7); Neutrophils % 88.3 % (38.7-73.9); Platelet Count 267 T/CUMM (130-400); Red Blood Count 4.16 MC/CUMM (3.8-5.5); Red Cell Distribution Width 16.6 % (9.3-17.3); White Blood Count 19.5 T/CUMM (4-12)
[2022-04-06] MEDS: PHENYLEPHRINE DRIP 40 MG/250 ML PREMIX IV PRN (20:38)
[2022-04-06 20:54] LABS: Band Neutrophils 1 % (0-10); Elliptocytes Few; Lymphocytes 3 % (20-55); Platelet Estimate Normal; Total Cells Counted 100
[2022-04-06 20:55] LABS: Albumin 2.2 G/DL (3.4-5.0); Bilirubin,Total 0.7 MG/DL (0.20-1.00); Calcium 7.9 MG/DL (8.5-10.1); Osmolality,Calculated 281.2 MOS/KG (273-304); Potassium 4.6 MMOL/L (3.5-5.1); Total Protein 5.2 G/DL (6.4-8.2)
[2022-04-06] MEDS: ROSUVASTATIN 20 MG TABLET PO SCH (21:40)
[2022-04-07] MEDS: AMIODARONE INJ 450 MG in DEXTROSE 5% 241 ML IV SCH (00:08)
[2022-04-07] MEDS: HEPARIN DRIP 25,000 UNITS/500 ML PREMIX IV SCH ×2 (00:17→00:33)
[2022-04-07] MEDS: ALBUTEROL/IPRATROPIUM 3 ML NEB RESP TX SCH ×4 (00:34→19:20)
[2022-04-07] MEDS: INSULIN REGULAR 100 UNIT/ML SUBCUT SCH ×4 (00:58→17:35)
[2022-04-07] MEDS: PHENYLEPHRINE DRIP 40 MG/250 ML PREMIX IV PRN ×6 (02:20→21:13)
[2022-04-07] MEDS ORDERED: AMIODARONE INJ 450 MG in DEXTROSE 5% 241 ML IV SCH (02:30)
[2022-04-07] MEDS: MEROPENEM 500 MG in SODIUM CHLORIDE 0.9% 100 ML IV SCH ×4 (03:22→20:39)
[2022-04-07 03:34] LABS: Arterial Base Excess iSTAT -1 MMOL/L (-2.5-2.5); Arterial Bicarbonate iSTAT 24.5 MMOL/L (20-26); Arterial O2 Saturation iSTAT 99 % (95-100); Arterial PCO2 iSTAT 44 MM HG (35-48); Arterial PO2 iSTAT 149 MM HG (80-95); Arterial Total CO2 iSTAT 26 MMO/L (23-27)
[2022-04-07 04:28] LABS: Basophils % 0.1 % (0.0-0.8); Hematocrit 37.5 VOL% (42.0-52.0); Hemoglobin 11.8 GM/DL (14.0-18.0); Immature Granulocytes % 0.6 %; Immature Granulocytes Absolute 0.09 #; Lymphocytes # 0.2 10*3/uL (1.4-4.0); Lymphocytes % 1.6 % (21.2-54.2); Mean Corpuscular HGB Conc 31.5 GM/DL (32-36); Mean Corpuscular Volume 98.4 FL (87-102); Mean Platelet Volume 12.3 FL (9.6-12.0); Monocytes # 0.8 10*3/uL (0.11-0.8); Monocytes % 5.1 % (1.7-12.7); Neutrophils % 92.6 % (38.7-73.9); Platelet Count 218 T/CUMM (130-400); Red Blood Count 3.81 MC/CUMM (3.8-5.5); Red Cell Distribution Width 16.9 % (9.3-17.3)
[2022-04-07 04:36] LABS: INR 1.2; PT Patient Result 13.3 SECS (10.1-12.1)
[2022-04-07 04:49] LABS: Lymphocytes 3 % (20-55); Platelet Estimate Adequate; Total Cells Counted 100
[2022-04-07 05:06] LABS: Albumin 1.9 G/DL (3.4-5.0); Bilirubin,Total 0.5 MG/DL (0.20-1.00); Osmolality,Calculated 280.4 MOS/KG (273-304); Potassium 4.4 MMOL/L (3.5-5.1); Total Protein 5.4 G/DL (6.4-8.2)
[2022-04-07] MEDS: MEXILETINE 150 MG CAPSULE PO SCH ×4 (06:10→21:00)
[2022-04-07 06:17] LABS: Phosphorous 2.9 MG/DL (2.5-4.9)
[2022-04-07] MEDS: methylPREDNISolone SOD SUC 40 MG/1 ML VIAL IV SCH ×2 (09:40→20:39)
[2022-04-07] MEDS: PANTOPRAZOLE 40 MG VIAL IV SCH (09:40)
[2022-04-07] MEDS: EZETIMIBE 10 MG TABLET PO SCH (09:40)
[2022-04-07] MEDS: ASPIRIN CHEW 81 MG TABLET PO SCH (09:40)
[2022-04-07] MEDS: LINACLOTIDE 145 MCG CAPSULE PO SCH (09:41)
[2022-04-07] MEDS: POTASSIUM BICARB EFFERVESCENT 20 MEQ TAB.EFF PO SCH (09:41)
[2022-04-07] MEDS: AMIODARONE 200 MG TABLET NG SCH ×2 (09:50→20:38)
[2022-04-07] MEDS: SODIUM CHLORIDE 0.9% 1,000 ML IV SCH (10:30)
[2022-04-07] MEDS: ASCORBIC ACID 500 MG TABLET PO SCH ×2 (14:25→20:38)
[2022-04-07] MEDS ORDERED: ZINC OXIDE PASTE 113 GM TUBE TOP PRN (15:33)
[2022-04-07] MEDS: ROSUVASTATIN 20 MG TABLET PO SCH (20:38)
[2022-04-07] MEDS ORDERED: METOPROLOL TARTRATE 25 MG TABLET PO SCH (21:00)
[2022-04-08] MEDS: ALBUTEROL/IPRATROPIUM 3 ML NEB RESP TX SCH ×4 (00:15→19:02)
[2022-04-08] MEDS: PHENYLEPHRINE DRIP 40 MG/250 ML PREMIX IV PRN ×8 (00:55→22:41)
[2022-04-08] MEDS: INSULIN REGULAR 100 UNIT/ML SUBCUT SCH ×5 (00:55→23:50)
[2022-04-08] MEDS ORDERED: LACTULOSE 20 GM/30 ML UDCUP PO PRN (02:12)
[2022-04-08] MEDS: HEPARIN DRIP 25,000 UNITS/500 ML PREMIX IV SCH (02:52)
[2022-04-08] MEDS: MEROPENEM 500 MG in SODIUM CHLORIDE 0.9% 100 ML IV SCH ×4 (02:53→20:20)
[2022-04-08] MEDS: SODIUM CHLORIDE 0.9% 1,000 ML IV SCH ×2 (02:53→17:00)
[2022-04-08 03:15] LABS: Arterial Base Excess iSTAT 0 MMOL/L (-2.5-2.5); Arterial Bicarbonate iSTAT 24.5 MMOL/L (20-26); Arterial O2 Saturation iSTAT 99 % (95-100); Arterial PCO2 iSTAT 37 MM HG (35-48); Arterial PO2 iSTAT 134 MM HG (80-95); Arterial Total CO2 iSTAT 26 MMO/L (23-27); Arterial pH iSTAT 7.427 (7.35-7.45)
[2022-04-08 04:14] LABS: Hematocrit 37.3 VOL% (42.0-52.0); Hemoglobin 11.8 GM/DL (14.0-18.0); Immature Granulocytes % 0.9 %; Immature Granulocytes Absolute 0.08 #; Lymphocytes # 0.3 10*3/uL (1.4-4.0); Mean Corpuscular HGB Conc 31.6 GM/DL (32-36); Mean Corpuscular Volume 97.1 FL (87-102); Mean Platelet Volume 11.6 FL (9.6-12.0); Monocytes # 0.5 10*3/uL (0.11-0.8); Monocytes % 5.9 % (1.7-12.7); Neutrophils % 90.2 % (38.7-73.9); Platelet Count 256 T/CUMM (130-400); Red Blood Count 3.84 MC/CUMM (3.8-5.5); Red Cell Distribution Width 17.2 % (9.3-17.3)
[2022-04-08 05:00] LABS: Albumin 2.1 G/DL (3.4-5.0); Bilirubin,Total 1.9 MG/DL (0.20-1.00); Calcium 7.7 MG/DL (8.5-10.1); Osmolality,Calculated 289.8 MOS/KG (273-304); Potassium 5.1 MMOL/L (3.5-5.1); Total Protein 4.9 G/DL (6.4-8.2)
[2022-04-08] MEDS: MEXILETINE 150 MG CAPSULE PO SCH ×3 (05:20→21:34)
[2022-04-08 07:03] LABS: INR 1.1; PT Patient Result 12.4 SECS (10.1-12.1)
[2022-04-08] MEDS: PANTOPRAZOLE 40 MG VIAL IV SCH (08:13)
[2022-04-08] MEDS: LINACLOTIDE 145 MCG CAPSULE PO SCH (08:13)
[2022-04-08] MEDS: methylPREDNISolone SOD SUC 40 MG/1 ML VIAL IV SCH ×2 (08:13→20:20)
[2022-04-08] MEDS: ASPIRIN CHEW 81 MG TABLET PO SCH (08:14)
[2022-04-08] MEDS: AMIODARONE 200 MG TABLET NG SCH ×2 (08:14→20:19)
[2022-04-08] MEDS: ASCORBIC ACID 500 MG TABLET PO SCH ×2 (08:14→20:19)
[2022-04-08] MEDS: MIDAZOLAM DRIP 100 MG/100 ML PREMIX IV PRN (10:45)
[2022-04-09] MEDS: ALBUTEROL/IPRATROPIUM 3 ML NEB RESP TX SCH ×5 (01:04→23:47)
[2022-04-09] MEDS: PHENYLEPHRINE DRIP 40 MG/250 ML PREMIX IV PRN ×7 (01:56→23:04)
[2022-04-09 03:23] LABS: Arterial Base Excess iSTAT -1 MMOL/L (-2.5-2.5); Arterial Bicarbonate iSTAT 22.9 MMOL/L (20-26); Arterial O2 Saturation iSTAT 99 % (95-100); Arterial PCO2 iSTAT 36 MM HG (35-48); Arterial PO2 iSTAT 149 MM HG (80-95); Arterial Total CO2 iSTAT 24 MMO/L (23-27); Arterial pH iSTAT 7.412 (7.35-7.45)
[2022-04-09 03:35] LABS: Basophils % 0.1 % (0.0-0.8); Hematocrit 37.7 VOL% (42.0-52.0); Hemoglobin 11.7 GM/DL (14.0-18.0); Immature Granulocytes % 0.5 %; Immature Granulocytes Absolute 0.06 #; Lymphocytes # 0.3 10*3/uL (1.4-4.0); Lymphocytes % 2.4 % (21.2-54.2); Mean Corpuscular Volume 99.2 FL (87-102); Mean Platelet Volume 11.6 FL (9.6-12.0); Monocytes # 0.7 10*3/uL (0.11-0.8); Platelet Count 272 T/CUMM (130-400); Red Cell Distribution Width 17.4 % (9.3-17.3); White Blood Count 12.1 T/CUMM (4-12)
[2022-04-09] MEDS: MEROPENEM 500 MG in SODIUM CHLORIDE 0.9% 100 ML IV SCH ×4 (03:35→20:16)
[2022-04-09 03:46] LABS: INR 1.2; PT Patient Result 12.6 SECS (10.1-12.1)
[2022-04-09 03:52] LABS: Bilirubin,Total 1.2 MG/DL (0.20-1.00); Calcium 8.1 MG/DL (8.5-10.1); Osmolality,Calculated 292.8 MOS/KG (273-304); Potassium 4.7 MMOL/L (3.5-5.1); Total Protein 5.4 G/DL (6.4-8.2)
[2022-04-09 04:04] LABS: Lymphocytes 1 % (20-55); Total Cells Counted 100
[2022-04-09] MEDS: HEPARIN DRIP 25,000 UNITS/500 ML PREMIX IV SCH (05:23)
[2022-04-09] MEDS: INSULIN REGULAR 100 UNIT/ML SUBCUT SCH ×4 (05:25→23:57)
[2022-04-09] MEDS: MEXILETINE 150 MG CAPSULE PO SCH ×4 (06:02→21:05)
[2022-04-09] MEDS: SODIUM CHLORIDE 0.9% 1,000 ML IV SCH (07:37)
[2022-04-09] MEDS ORDERED: FUROSEMIDE 40 MG/4 ML VIAL IV ONE ×2 (08:36→16:00)
[2022-04-09] MEDS: AMIODARONE 200 MG TABLET NG SCH ×2 (08:44→20:12)
[2022-04-09] MEDS: ASCORBIC ACID 500 MG TABLET PO SCH ×2 (08:44→20:12)
[2022-04-09] MEDS: ASPIRIN CHEW 81 MG TABLET PO SCH (08:44)
[2022-04-09] MEDS: methylPREDNISolone SOD SUC 40 MG/1 ML VIAL IV SCH ×2 (08:45→20:12)
[2022-04-09] MEDS: PANTOPRAZOLE 40 MG VIAL IV SCH (08:45)
[2022-04-09] MEDS: LINACLOTIDE 145 MCG CAPSULE PO SCH (08:51)
[2022-04-09] MEDS: SOTALOL 80 MG TABLET PO SCH ×2 (11:06→20:11)
[2022-04-10] MEDS: HEPARIN DRIP 25,000 UNITS/500 ML PREMIX IV SCH ×3 (02:25→11:00)
[2022-04-10] MEDS: PHENYLEPHRINE DRIP 40 MG/250 ML PREMIX IV PRN ×7 (02:29→22:30)
[2022-04-10] MEDS: MEROPENEM 500 MG in SODIUM CHLORIDE 0.9% 100 ML IV SCH ×2 (02:30→08:07)
[2022-04-10 03:20] LABS: Basophils % 0.1 % (0.0-0.8); Hematocrit 39.1 VOL% (42.0-52.0); Hemoglobin 12.5 GM/DL (14.0-18.0); Immature Granulocytes % 0.9 %; Immature Granulocytes Absolute 0.11 #; Lymphocytes # 0.5 10*3/uL (1.4-4.0); Lymphocytes % 3.7 % (21.2-54.2); Mean Corpuscular Volume 96.5 FL (87-102); Mean Platelet Volume 11.8 FL (9.6-12.0); Monocytes # 0.7 10*3/uL (0.11-0.8); Monocytes % 5.8 % (1.7-12.7); NRBC # 0.03 10*3/uL; Neutrophils % 89.5 % (38.7-73.9); Platelet Count 313 T/CUMM (130-400); Red Blood Count 4.05 MC/CUMM (3.8-5.5); Red Cell Distribution Width 17.2 % (9.3-17.3); White Blood Count 12.3 T/CUMM (4-12)
[2022-04-10 03:27] LABS: INR 1.2; Partial Thromboplastin Time 74.9 SECS (23.7-32.9)
[2022-04-10 03:36] LABS: Albumin 1.9 G/DL (3.4-5.0); Bilirubin,Total 1.4 MG/DL (0.20-1.00); Calcium 7.9 MG/DL (8.5-10.1); Osmolality,Calculated 295.7 MOS/KG (273-304); Potassium 4.6 MMOL/L (3.5-5.1); Total Protein 5.3 G/DL (6.4-8.2)
[2022-04-10 03:44] LABS: Hypochromia Slight; Lymphocytes 3 % (20-55); Nucleated Red Blood Cells 3 /100 WBC (0-5); Platelet Estimate Adequate; Total Cells Counted 100
[2022-04-10 05:35] LABS: Arterial Base Excess iSTAT 0 MMOL/L (-2.5-2.5); Arterial Bicarbonate iSTAT 23.9 MMOL/L (20-26); Arterial O2 Saturation iSTAT 98 % (95-100); Arterial PCO2 iSTAT 37 MM HG (35-48); Arterial PO2 iSTAT 111 MM HG (80-95); Arterial Total CO2 iSTAT 25 MMO/L (23-27); Arterial pH iSTAT 7.424 (7.35-7.45)
[2022-04-10] MEDS: MEXILETINE 150 MG CAPSULE PO SCH ×3 (06:27→21:06)
[2022-04-10] MEDS: INSULIN REGULAR 100 UNIT/ML SUBCUT SCH ×3 (06:27→17:28)
[2022-04-10] MEDS: ALBUTEROL/IPRATROPIUM 3 ML NEB RESP TX SCH ×3 (07:35→19:50)
[2022-04-10] MEDS: AMIODARONE 200 MG TABLET NG SCH ×2 (08:09→20:13)
[2022-04-10] MEDS: ASCORBIC ACID 500 MG TABLET PO SCH ×2 (08:09→20:13)
[2022-04-10] MEDS: PANTOPRAZOLE 40 MG VIAL IV SCH (08:09)
[2022-04-10] MEDS: SOTALOL 80 MG TABLET PO SCH ×2 (08:09→20:13)
[2022-04-10] MEDS: ASPIRIN CHEW 81 MG TABLET PO SCH (08:09)
[2022-04-10] MEDS: POTASSIUM BICARB EFFERVESCENT 20 MEQ TAB.EFF PO SCH (08:09)
[2022-04-10] MEDS: methylPREDNISolone SOD SUC 40 MG/1 ML VIAL IV SCH ×2 (08:10→20:17)
[2022-04-10] MEDS: MIDAZOLAM DRIP 100 MG/100 ML PREMIX IV PRN (08:15)
[2022-04-10] MEDS: LINACLOTIDE 145 MCG CAPSULE PO SCH (08:38)
[2022-04-10] MEDS: FUROSEMIDE 40 MG/4 ML VIAL IV SCH ×2 (08:39→15:01)
[2022-04-10] MEDS ORDERED: APIXABAN 5 MG TABLET PER TUBE SCH (09:00)
[2022-04-10] MEDS ORDERED: HEPARIN DRIP 25,000 UNITS/500 ML PREMIX IV SCH (11:00)
[2022-04-10] MEDS ORDERED: DEXTROSE 10% 250 ML BAG IV PRN (11:02)
[2022-04-10] MEDS: cefTRIAXone 2,000 MG in SODIUM CHLORIDE 0.9% 100 ML IV SCH (13:15)
[2022-04-11] MEDS: ALBUTEROL/IPRATROPIUM 3 ML NEB RESP TX SCH ×4 (00:05→19:30)
[2022-04-11] MEDS: INSULIN REGULAR 100 UNIT/ML SUBCUT SCH ×4 (00:32→17:50)
[2022-04-11] MEDS: PHENYLEPHRINE DRIP 40 MG/250 ML PREMIX IV PRN ×6 (02:33→21:46)
[2022-04-11 04:03] LABS: Basophils % 0.2 % (0.0-0.8); Hematocrit 41.9 VOL% (42.0-52.0); Hemoglobin 13.7 GM/DL (14.0-18.0); Immature Granulocytes % 1.5 %; Immature Granulocytes Absolute 0.25 #; Lymphocytes # 0.6 10*3/uL (1.4-4.0); Lymphocytes % 3.2 % (21.2-54.2); Mean Corpuscular HGB Conc 32.7 GM/DL (32-36); Mean Corpuscular Volume 93.7 FL (87-102); Mean Platelet Volume 11.6 FL (9.6-12.0); Monocytes # 1.1 10*3/uL (0.11-0.8); Monocytes % 6.5 % (1.7-12.7); NRBC # 0.03 10*3/uL; Neutrophils % 88.6 % (38.7-73.9); Platelet Count 327 T/CUMM (130-400); Red Blood Count 4.47 MC/CUMM (3.8-5.5); Red Cell Distribution Width 16.7 % (9.3-17.3); White Blood Count 17.1 T/CUMM (4-12)
[2022-04-11 04:17] LABS: Albumin 1.9 G/DL (3.4-5.0); Bilirubin,Total 1.5 MG/DL (0.20-1.00); Osmolality,Calculated 299.5 MOS/KG (273-304); Potassium 4.5 MMOL/L (3.5-5.1); Total Protein 5.3 G/DL (6.4-8.2)
[2022-04-11 04:24] LABS: Lymphocytes 3 % (20-55); Total Cells Counted 100
[2022-04-11 04:25] LABS: Microcytosis Slight; Ovalocytes Slight
[2022-04-11] MEDS: POTASSIUM BICARB EFFERVESCENT 20 MEQ TAB.EFF PO SCH (08:30)
[2022-04-11] MEDS: SOTALOL 80 MG TABLET PO SCH ×2 (08:30→21:19)
[2022-04-11] MEDS: ASCORBIC ACID 500 MG TABLET PO SCH ×2 (08:30→21:19)
[2022-04-11] MEDS: cefTRIAXone 2,000 MG in SODIUM CHLORIDE 0.9% 100 ML IV SCH (08:30)
[2022-04-11] MEDS: PANTOPRAZOLE 40 MG VIAL IV SCH (08:30)
[2022-04-11] MEDS: ASPIRIN CHEW 81 MG TABLET PO SCH (08:30)
[2022-04-11] MEDS: FUROSEMIDE 40 MG/4 ML VIAL IV SCH ×2 (08:30→15:00)
[2022-04-11] MEDS: AMIODARONE 200 MG TABLET NG SCH ×2 (08:30→21:19)
[2022-04-11] MEDS: MEXILETINE 150 MG CAPSULE PO SCH ×3 (08:30→21:19)
[2022-04-11] MEDS: LINACLOTIDE 145 MCG CAPSULE PO SCH (08:30)
[2022-04-11] MEDS: methylPREDNISolone SOD SUC 40 MG/1 ML VIAL IV SCH ×2 (08:30→21:20)
[2022-04-11] MEDS ORDERED: ACETAMINOPHEN 325 MG TABLET PO PRN (11:31)
[2022-04-11] MEDS: HEPARIN DRIP 25,000 UNITS/500 ML PREMIX IV SCH (13:15)
[2022-04-11] MEDS ORDERED: WARFARIN 5 MG TABLET PER TUBE SCH (18:00)
[2022-04-12] MEDS: ALBUTEROL/IPRATROPIUM 3 ML NEB RESP TX SCH ×3 (00:04→13:54)
[2022-04-12] MEDS: INSULIN REGULAR 100 UNIT/ML SUBCUT SCH ×3 (00:20→13:06)
[2022-04-12] MEDS: PHENYLEPHRINE INJ 160 MG in SODIUM CHLORIDE 0.9% 234 ML IV PRN ×2 (02:26→11:50)
[2022-04-12 03:34] LABS: Basophils % 0.1 % (0.0-0.8); Hematocrit 43.4 VOL% (42.0-52.0); Hemoglobin 14.3 GM/DL (14.0-18.0); Immature Granulocytes % 1.9 %; Immature Granulocytes Absolute 0.23 #; Lymphocytes # 0.7 10*3/uL (1.4-4.0); Lymphocytes % 5.7 % (21.2-54.2); Mean Corpuscular HGB Conc 32.9 GM/DL (32-36); Mean Corpuscular Volume 92.1 FL (87-102); Mean Platelet Volume 11.7 FL (9.6-12.0); Monocytes # 0.5 10*3/uL (0.11-0.8); Monocytes % 4.2 % (1.7-12.7); NRBC # 0.03 10*3/uL; Neutrophils % 88.1 % (38.7-73.9); Platelet Count 244 T/CUMM (130-400); Red Blood Count 4.71 MC/CUMM (3.8-5.5); Red Cell Distribution Width 16.6 % (9.3-17.3); White Blood Count 12.3 T/CUMM (4-12)
[2022-04-12 03:47] LABS: INR 1.5
[2022-04-12 04:02] LABS: Calcium 7.9 MG/DL (8.5-10.1); Potassium 4.5 MMOL/L (3.5-5.1)
[2022-04-12 04:04] LABS: Arterial Base Excess iSTAT 5 MMOL/L (-2.5-2.5); Arterial Bicarbonate iSTAT 25.7 MMOL/L (20-26); Arterial O2 Saturation iSTAT 97 % (95-100); Arterial PCO2 iSTAT 28 MM HG (35-48); Arterial PO2 iSTAT 76 MM HG (80-95); Arterial Total CO2 iSTAT 27 MMO/L (23-27)
[2022-04-12] MEDS: MEXILETINE 150 MG CAPSULE PO SCH ×2 (05:22→14:27)
[2022-04-12] MEDS ORDERED: MORPHINE 2 MG/1 ML SYRINGE IV PRN (06:19)
[2022-04-12] MEDS ORDERED: NOREPINEPHRINE DRIP 8 MG/250 ML PREMIX IV ONE (08:09)
[2022-04-12] MEDS ORDERED: SODIUM CHLORIDE 0.9% 250 ML IV ONE (08:21)
[2022-04-12] MEDS: FUROSEMIDE 40 MG/4 ML VIAL IV SCH (09:09)
[2022-04-12] MEDS: ASPIRIN CHEW 81 MG TABLET PO SCH (09:32)
[2022-04-12] MEDS: SOTALOL 80 MG TABLET PO SCH (09:32)
[2022-04-12] MEDS: POTASSIUM BICARB EFFERVESCENT 20 MEQ TAB.EFF PO SCH (09:32)
[2022-04-12] MEDS: ASCORBIC ACID 500 MG TABLET PO SCH (09:32)
[2022-04-12] MEDS: AMIODARONE 200 MG TABLET NG SCH (09:32)
[2022-04-12] MEDS: LINACLOTIDE 145 MCG CAPSULE PO SCH (09:32)
[2022-04-12] MEDS: cefTRIAXone 2,000 MG in SODIUM CHLORIDE 0.9% 100 ML IV SCH (09:33)
[2022-04-12] MEDS: methylPREDNISolone SOD SUC 40 MG/1 ML VIAL IV SCH (09:33)
[2022-04-12] MEDS: PANTOPRAZOLE 40 MG VIAL IV SCH (09:33)
[2022-04-12] MEDS ORDERED: LINEZOLID INJ 600 MG/300 ML PREMIX IV SCH (10:00)
[2022-04-12] MEDS: HEPARIN DRIP 25,000 UNITS/500 ML PREMIX IV SCH (10:54)
[2022-04-12] MEDS: NOREPINEPHRINE DRIP 8 MG/250 ML PREMIX IV PRN ×3 (10:55→14:50)
[2022-04-12] MEDS ORDERED: NOREPINEPHRINE 16 MG in SODIUM CHLORIDE 0.9% 234 ML IV PRN (15:45)
== END 2022-04-12 15:51 | disposition expired ==
LOC: N.ED 21:00 → N.EDINP 23:43 → SUATTDRO 23:43 → N.ICU 04-03 00:42 → N.CC 04-09 12:02
PROVIDERS: ADMIT Family Medicine; ATTEND Internal Medicine